=== PATIENT | male | born 1985 | race African-American/Black ===

== ENCOUNTER 2018-03-12 22:01 | Emergency (ER) | payer OTHER ==
[~2018-03-12] VITALS: Ht 175.3 cm; Wt 70.3 kg
[2018-03-12 22:15] VITALS: BP 126/72
[2018-03-12] MEDS ORDERED: AUGMENTIN 875-1 EAC1 ORAL (22:25)
[2018-03-12] MEDS ORDERED: PSEUDOEPHEDRINE60 MG PO (22:25)
[2018-03-12] MEDS ORDERED: IBUPROFEN600 MG ORAL (22:25)
--- NOTE | 2018-03-12 22:26 | Emergency Room Report ---
History of Present Illness General Chief Complaint: Flu Like Symptoms Source: Patient Present Illness [facility] This is a 32-year-old male with no past medical history. He presents with chief complaint of cough and congestion for last 3 weeks. Symptoms any worse. No nausea no vomiting. Now with headache and subjective fever. Daughter was sick with the same. Cough is nonproductive in nature. Worse with lying flat. Allergies: Coded Allergies: No Known Allergies (Unverified , 03/12/18) Patient History Past Medical History: none, see triage record, old chart reviewed Past Surgical History: none Pertinent Family History: none Social History: Denies: smoking Immunizations: other Reviewed Nursing Documentation: PMH: Agreed; PSxH: Agreed Nursing Documentation-PMH Past Medical History: No Stated History Review of Systems Constitutional: Reports: fever Eye: Denies: eye pain, blurred vision ENT: Reports: nose congestion; Denies: ear pain, throat swelling Respiratory: Reports: cough; Denies: shortness of breath Cardiovascular: Denies: chest pain, palpitations Gastrointestinal: Denies: abdominal pain, diarrhea, nausea, vomiting Musculoskeletal: Denies: back pain, joint pain Skin: Denies: rash Neurological: Denies: headache, numbness Endocrine: Denies: increased thirst, increased urine Hematologic/Lymphatic: Denies: easy bruising All Other Systems: negative except mentioned in HPI Physical Exam Vital Signs Date Time Temp Pulse Resp B/P (MAP) Pulse Ox O2 Delivery O2 Flow Rate FiO2 03/12/18 22:09 98.2 85 16 126/72 97 Room Air 03/12/18 22:15 99 vitals normal Sp02 EP Interpretation: reviewed, normal General Appearance: well appearing, no apparent distress, alert Head: normocephalic, atraumatic Eyes: bilateral eye PERRL, bilateral eye EOMI ENT: hearing grossly normal, normal pharynx, other - Right TM is erythematous Neck: full range of motion, supple, no meningismus Respiratory: chest non-tender, lungs clear, normal breath sounds Cardiovascular #1: regular rate, rhythm, no murmur Gastrointestinal: normal bowel sounds, non tender, no mass, no organomegaly, no bruit, non-distended Musculoskeletal: back normal, gait/station normal, normal range of motion Psychiatric: mood/affect normal Skin: warm/dry Medical Decision Making Diagnostic Impression: Primary Impression: URI (upper respiratory infection) Qualified Codes: J06.9 - Acute upper respiratory infection, unspecified Additional Impression: Otitis media, right Qualified Codes: H66.91 - Otitis media, unspecified, right ear ER Course Patient presents with a viral process or infection with otitis media. No evidence of meningitis, sepsis, pneumonia or other serious bacterial infection. We'll discharge home. Last Vital Signs Date Time Temp Pulse Resp B/P (MAP) Pulse Ox O2 Delivery O2 Flow Rate FiO2 03/12/18 22:15 85 16 Room Air 99 03/12/18 22:15 98.2 126/72 97 Status: unchanged Disposition: HOME, SELF-CARE Condition: Stable Scripts Amoxicillin/Potassium Clav 875-125* (AUGMENTIN 875-125 TABLET*) 1 Each Tablet 1 TAB ORAL TWICE A DAY, #14 TAB Prov: Darren Mccray MD 03/12/18 Pseudoephedrine Hcl* (SUDAFED*) 60 Mg Tablet 60 MG PO Q6H, #20 TAB Prov: Darren Mccray MD 03/12/18 Ibuprofen* (MOTRIN*) 600 Mg Tablet 600 MG ORAL THREE TIMES A DAY, #30 TAB 0 Refills Prov: Darren Mccray MD 03/12/18 Additional Instructions: Increase fluids. Follow-up with your doctor in 7 days. Return if worse. Darren Mccray MD Mar 12, 2018 22:26
[2018-03-12 22:35] VITALS: BP 126/72
== END 2018-03-12 22:35 | disposition home or self-care (01) ==
LOC: EMR 22:15
DX: J06.9 Acute upper respiratory infection, unspecified (principal); H66.91 Otitis media, unspecified, right ear; Z87.891 Personal history of nicotine dependence
CPT/HCPCS: 99283

== ENCOUNTER 2018-04-13 20:01 | Emergency (ER) | payer OTHER ==
[~2018-04-13] VITALS: Ht 175.3 cm; Wt 70.3 kg
[~2018-04-13 20:01] MED LIST: AUGMENTIN 875-1 EAC1 ORAL; IBUPROFEN600 MG ORAL; PSEUDOEPHEDRINE60 MG PO
[2018-04-13 20:10] VITALS: BP 130/76
[2018-04-13] MEDS ORDERED: Methocarbamol 500mg tab ORAL ONE (21:00)
[2018-04-13] MEDS ORDERED: Ketorolac 60mg Inj IM ONE (21:00)
[2018-04-13] MEDS ORDERED: oxyCODONE HCL/Acetaminophen 5/325mg ORAL ONE (21:00)
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
[2018-04-13] MEDS ORDERED: ROBAXIN500 MG PO (21:11)
[2018-04-13] MEDS ORDERED: IBUPROFEN600 MG ORAL (21:11)
[2018-04-13] MEDS ORDERED: TRAMADOL HCL50 MG ORAL (21:11)
[2018-04-13 21:20] VITALS: BP 128/96
== END 2018-04-13 21:20 | disposition home or self-care (01) ==
LOC: EMR 20:55
DX: S39.012A Strain of muscle, fascia and tendon of lower back, initial encounter (principal); M62.838 Other muscle spasm; X58.XXXA Exposure to other specified factors, initial encounter; Y92.9 Unspecified place or not applicable
CPT/HCPCS: 96372; 99283

== ENCOUNTER 2018-07-26 21:07 | Emergency (ER) | payer SELFPAY ==
[~2018-07-26] VITALS: Ht 177.8 cm; Wt 72.1 kg
[~2018-07-26 21:07] MED LIST changes: +ROBAXIN500 MG PO; +TRAMADOL HCL50 MG ORAL
[2018-07-26] MEDS ORDERED: NKM (21:16)
[2018-07-26 21:21] VITALS: BP 126/68
[2018-07-26 22:04] VITALS: BP 124/72
[2018-07-26] MEDS ORDERED: IBUPROFEN600 MG ORAL (22:06)
--- NOTE | 2018-07-26 22:07 | Emergency Room Report ---
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 In here in March for back pain from work. There is no trauma. He said the pain never got really better. But again exacerbation last couple weeks. Worse with heavy lifting. Worse with twisting. Never had any Worker's Comp. follow-up. No fever chills but no nausea no vomiting. No incontinence of bowel or urine. Allergies: Coded Allergies: No Known Allergies (Unverified , 04/13/18) Patient History Past Medical History: see triage record, old chart reviewed Past Surgical History: none Pertinent Family History: none Social History: Denies: smoking Immunizations: other Reviewed Nursing Documentation: PMH: Agreed; PSxH: Agreed Nursing Documentation-PM Past Medical History: No Stated History Review of Systems Eye: Denies: eye pain, blurred vision ENT: Denies: ear pain, nose congestion, throat swelling Respiratory: Denies: cough, shortness of breath Cardiovascular: Denies: chest pain, palpitations Gastrointestinal: Denies: abdominal pain, diarrhea, nausea, vomiting Musculoskeletal: Reports: back pain; Denies: joint pain Skin: Denies: rash Neurological: Denies: headache, numbness Endocrine: Denies: increased thirst, increased urine Hematologic/Lymphatic: Denies: easy bruising All Other Systems: negative except mentioned in HPI Physical Exam Vital Signs Date Time Temp Pulse Resp B/P (MAP) Pulse Ox O2 Delivery O2 Flow Rate FiO2 07/26/18 21:11 98.8 84 12 123/60 95 Room Air vitals normal Sp02 EP Interpretation: reviewed, normal General Appearance: well appearing, no apparent distress, alert Head: normocephalic, atraumatic Eyes: bilateral eye PERRL, bilateral eye EOMI ENT: hearing grossly normal, normal pharynx Neck: full range of motion, supple, no meningismus Respiratory: chest non-tender, lungs clear, normal breath sounds Cardiovascular #1: regular rate, rhythm, no murmur Gastrointestinal: normal bowel sounds, non tender, no mass, no organomegaly, no bruit, non-distended Musculoskeletal: back normal - Tenderness to the left lower lumbar paraspinous muscle., gait/station normal, normal range of motion Psychiatric: mood/affect normal Skin: warm/dry Medical Decision Making Diagnostic Impression: Primary Impression: Low back strain Qualified Codes: S39.012A - Strain of muscle, fascia and tendon of lower back , initial encounter ER Course Patient with back pain. No evidence of any cauda equina syndrome, spinal or abscess or neoplastic process. No trauma to indicate fracture. Last Vital Signs Date Time Temp Pulse Resp B/P (MAP) Pulse Ox O2 Delivery O2 Flow Rate FiO2 07/26/18 21:21 98.6 82 16 126/68 98 Room Air Status: improved Disposition: HOME, SELF-CARE Condition: Stable Scripts Ibuprofen* (MOTRIN*) 600 Mg Tablet 600 MG ORAL THREE TIMES A DAY, #30 TAB 0 Refills Prov: Darren Mccray MD 07/26/18 Patient Instructions: Back Injury Prevention Additional Instructions: Follow-up with your workmen's comp doctor in 2-3 days. Return if worse. Darren Mccray MD Jul 26, 2018 22:07
== END 2018-07-26 22:10 | disposition home or self-care (01) ==
LOC: EMR 21:51
DX: S39.012A Strain of muscle, fascia and tendon of lower back, initial encounter (principal); X58.XXXA Exposure to other specified factors, initial encounter; Y92.9 Unspecified place or not applicable
CPT/HCPCS: 99282

== ENCOUNTER 2018-11-11 00:34 | Emergency (ER) | payer OTHER ==
[~2018-11-11] VITALS: Ht 175.3 cm; Wt 72.6 kg
[~2018-11-11 00:34] MED LIST changes: +NKM
[2018-11-11 00:46] VITALS: BP 128/69
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
--- NOTE | 2018-11-11 00:58 | NUR ---
ED Nurse Note: called [employer] station, spoke with corrugator operator [id number], per corrugator operator statement, if the patient doesn't want to file police report the PD won't come out, pt stated that he doesn't want to file police report at this time.
[2018-11-11] MEDS ORDERED: Lidocaine 1% Plain 30 ml INJ ONE ×2 (01:11→01:15)
[2018-11-11] MEDS ORDERED: Acetaminophen 500mg (ES) tab ORAL ONE ×2 (01:12→01:15)
--- NOTE | 2018-11-11 01:14 | NUR ---
ED Nurse Note: PT SENT TO CT
[2018-11-11] MEDS ORDERED: Bacitracin Oint UD TOPIC ONE ×2 (01:43→02:00)
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
--- NOTE | 2018-11-11 02:08 | NUR ---
ED Nurse Note: PT CLEARED TO BE D/C PER ERMD, PT DISCHARGE AND AFTERCARE INSTRUCTION PROVIDED W/ PRESCRIPTION, PT EDUCATION DONE VIA DISCUSSION AND HANDOUT, PT ADIVSED TO FOLLOW UP WITH PCP OR RETURN TO ED, STAPLE REMOVAL IN 10DAYS, PT VERBALIZED UNDERSTANDING AND AGREES WITH PLAN, ACCOMPANIED BY FAMILY AND LEFT W/ ALL BELONGINGS.
[2018-11-11 02:09] VITALS: BP 128/69
--- NOTE | 2018-11-11 12:44 | Diagnostic Imaging Report ---
Indication: Headache Technique: Contiguous 5 mm thick transaxial imaging of the head obtained in a Siemens Sensation [address] scanner. Soft tissue and bone windows generated. Automatic Exposure Control was utilized. Total Dose length Product (DLP): [address] Dose Index Volume (CTDIvol): 80.38 mGy Comparison: none Findings: Normal [facility] has communicated the preliminary results to the Emergency Department. Their findings are largely concordant with this report. The CT scanner at [facility] is accredited by the [employer] and the scans are performed using dose optimization techniques as appropriate to a performed exam including Automatic Exposure control.
== END 2018-11-11 02:09 | disposition home or self-care (01) ==
LOC: EMR 01:15
DX: S01.01XA Laceration without foreign body of scalp, initial encounter (principal); Y04.2XXA Assault by strike against or bumped into by another person, initial encounter; Y92.89 Other specified places as the place of occurrence of the external cause
CPT/HCPCS: 12002; 70450; 99284; J2001; Z7502

== ENCOUNTER 2018-11-13 00:37 | Emergency (ER) | payer OTHER ==
[~2018-11-13] VITALS: Ht 177.8 cm; Wt 72.6 kg
[2018-11-13 00:49] VITALS: BP 100/68
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
[2018-11-13] MEDS ORDERED: HYDROmorphone 1mg/ml Carpuject IM ONE (01:00)
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
[2018-11-13] MEDS ORDERED: HYDROCODON-ACE1 EA15 ORAL (01:15)
[2018-11-13] MEDS ORDERED: ROBAXIN500 MG PO (01:15)
[2018-11-13 01:20] VITALS: BP 100/68
--- NOTE | 2018-11-13 01:20 | NUR ---
ER Nurse Note: Pt seen, treated, medically cleared for discharge by ERMD. Discharge instuctions and prescriptions given with repeat verbalization by pt. Emphasized to follow up with primay care provider; take whole course of medication. Explained each medication. All orders completed per ERMD orders. Pt a&ox4, VSS, no signs of distress. ID band removed. Sling applied to pt RT arm. All questions answered per pt's questions. Pt left with all belongings, left with own transportation with significant other.
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
[2018-11-14] MEDS ORDERED: IBUPROFEN600 MG ORAL (09:54)
[2018-11-14] MEDS ORDERED: CYCLOBENZAPRINE10 MG ORAL (09:54)
== END 2018-11-13 01:20 | disposition home or self-care (01) ==
LOC: EMR 00:55
DX: S43.401A Unspecified sprain of right shoulder joint, initial encounter (principal); Y09 Assault by unspecified means
CPT/HCPCS: 29105; 73030; 96372; 99283; J1170

== ENCOUNTER 2018-11-14 07:47 | Emergency (ER) | payer OTHER ==
[~2018-11-14] VITALS: Ht 177.8 cm; Wt 72.6 kg
[~2018-11-14 07:47] MED LIST changes: +HYDROCODON-ACE1 EA15 ORAL
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
[2018-11-14] MEDS ORDERED: Ketorolac 60mg Inj IM ONE (08:30)
--- NOTE | 2018-11-14 08:35 | NUR ---
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 pt states continued pain and not improving despite meds given on last visit. pt a/ox4 pt to have pain med when returns.
--- NOTE | 2018-11-14 09:41 | Diagnostic Imaging Report ---
EXAM: CT Cervical Spine Without Intravenous Contrast CLINICAL HISTORY: PAIN TECHNIQUE: Axial computed tomography images of the cervical spine without intravenous contrast. CTDI is 16.35 mGy and DLP is 390.87 mGy-cm. One or more of the following dose reduction techniques were used: automated exposure control, adjustment of the mA and/or kV according to patient size, use of iterative reconstruction technique. Coronal and sagittal reformatted images were created and reviewed. COMPARISON: No relevant prior studies available. FINDINGS: Vertebrae: Unremarkable. No visible displaced fracture. Cervical body heights are preserved. The atlantodens interval appears unremarkable. Discs/spinal canal/neural foramina: Mild degenerative disc space loss and facet osteophytes, most prominent at C5-6. No significant osseous stenosis of the central canal or neural foramina. Soft tissues: Unremarkable. IMPRESSION: Mild degenerative changes, most prominent at C5-6.
--- NOTE | 2018-11-14 09:48 | Diagnostic Imaging Report ---
EXAM: CT Head Without Intravenous Contrast CLINICAL HISTORY: PAIN TECHNIQUE: Axial computed tomography images of the head/brain without intravenous contrast. CTDI is 70.38 mGy and DLP is 1379.38 mGy-cm. One or more of the following dose reduction techniques were used: automated exposure control, adjustment of the mA and/or kV according to patient size, use of iterative reconstruction technique. Coronal reformatted images were created and reviewed. COMPARISON: CT head dated 11/11/18 FINDINGS: Brain: Unremarkable. No evidence of acute intracranial hemorrhage. No significant white matter disease. No edema. No mass effect or midline shift. Ventricles: Unremarkable. No ventriculomegaly. Bones/joints: Unremarkable. No depressed skull fracture. Soft tissues: Radiodense crystal in the posterior parietal scalp just left of midline. Sinuses: Unremarkable as visualized. No acute sinusitis. Mastoid air cells: Unremarkable as visualized. No mastoid effusion. IMPRESSION: No acute intracranial findings.
[2018-11-14] MEDS ORDERED: CYCLOBENZAPRINE10 MG ORAL (09:54)
[2018-11-14] MEDS ORDERED: IBUPROFEN600 MG ORAL (09:54)
--- NOTE | 2018-11-14 10:25 | NUR ---
ER DISCHARGE NOTE: Patient is cleared to be discharged per ERMD, pt is aox4, on room air, with stable vital signs. pt was given dc and prescription instructions, pt was able to verbalize understanding, pt id band removed without complications. pt is able to ambulate with steady gait. pt took all belongings.
[2018-11-14 10:26] VITALS: BP 137/98
== END 2018-11-14 10:25 | disposition home or self-care (01) ==
LOC: EMR 08:27
DX: M13.88 Other specified arthritis, other site (principal); S46.901A Unspecified injury of unspecified muscle, fascia and tendon at shoulder and upper arm level, right arm, initial encounter; X58.XXXA Exposure to other specified factors, initial encounter; Y92.9 Unspecified place or not applicable
CPT/HCPCS: 70450; 72125; 96372; 99283

== ENCOUNTER 2018-11-26 15:08 | Emergency (ER) | payer OTHER ==
[~2018-11-26] VITALS: Ht 175.3 cm; Wt 72.6 kg
[~2018-11-26 15:08] MED LIST changes: +CYCLOBENZAPRINE10 MG ORAL
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
[2018-11-26 15:17] VITALS: BP 144/74
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
[2018-11-26] MEDS ORDERED: ROBAXIN-750750 MG PO (16:13)
[2018-11-26 16:45] VITALS: BP 138/76
== END 2018-11-26 16:45 | disposition home or self-care (01) ==
LOC: EMR 16:00
DX: M25.511 Pain in right shoulder (principal)
CPT/HCPCS: 99281

== ENCOUNTER 2020-02-08 23:25 | Emergency (ER) | payer OTHER ==
[~2020-02-08] VITALS: Ht 175.3 cm; Wt 68.0 kg
[~2020-02-08 23:25] MED LIST changes: +ROBAXIN-750750 MG PO
[2020-02-09] MEDS ORDERED: IBUPROFEN600 M1 ORAL (00:30)
[2020-02-09] MEDS ORDERED: AMOXICILLIN500 MG ORAL (00:30)
--- NOTE | 2020-02-09 00:30 | Emergency Room Report ---
History of Present Illness General Chief Complaint: Earache Source: Patient Present Illness [facility] This a 34-year-old male with no past medical history. He presents with complaint of right ear pain. Onset for last couple days. His put some eardrops in it and actually made it worse. Pain is 8 out of 10. Throbbing in nature. Denies any cough congestion. No fever chills. Denies any other complaint. 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 CHIPPER: Yes - 2 days ago COVID-19 Screening: Negative COVID-19 COVID-19 Testing Source: [facility] Patient History Past Medical History: see triage record, old chart reviewed Past Surgical History: none Pertinent Family History: none Social History: Denies: smoking Immunizations: other Reviewed Nursing Documentation: PMH: Agreed; PSxH: Agreed Nursing Documentation-PMH Past Medical History: No Stated History Review of Systems Eye: Denies: eye pain, blurred vision ENT: Reports: ear pain; Denies: nose congestion, throat swelling Respiratory: Denies: cough, shortness of breath Cardiovascular: Denies: chest pain, palpitations Gastrointestinal: Denies: abdominal pain, diarrhea, nausea, vomiting Musculoskeletal: Denies: back pain, joint pain Skin: Denies: rash Neurological: Denies: headache, numbness Endocrine: Denies: increased thirst, increased urine Hematologic/Lymphatic: Denies: easy bruising All Other Systems: negative except mentioned in HPI Physical Exam Vital Signs Date Time Temp Pulse Resp B/P (MAP) Pulse Ox O2 Delivery O2 Flow Rate FiO2 02/08/20 23:29 98.2 74 18 119/81 (94) 94 Room Air Vitals normal Sp02 EP Interpretation: reviewed, normal General Appearance: well appearing, no apparent distress, alert Head: normocephalic, atraumatic Eyes: bilateral eye PERRL, bilateral eye EOMI ENT: hearing grossly normal, normal pharynx, other - Both ear canals impacted with wax. After disimpaction, right TM is erythematous and bulging. Neck: full range of motion, supple, no meningismus Respiratory: chest non-tender, lungs clear, normal breath sounds Cardiovascular #1: regular rate, rhythm, no murmur Gastrointestinal: normal bowel sounds, non tender, no mass, no organomegaly, no bruit, non-distended Musculoskeletal: back normal, normal range of motion, gait/station normal Psychiatric: mood/affect normal Procedures Additional Procedure Procedure Narrative Procedure: Cerumen disimpaction Indication: Cerumen impaction Description: I irrigated both ears with normal saline. Hard cerumen disimpacted. No trauma. Medical Decision Making Diagnostic Impression: Primary Impression: Right otitis media Qualified Codes: H66.91 - Otitis media, unspecified, right ear Additional Impression: Impacted cerumen of both ears ER Course Patient presents with right ear pain. He has an otitis media. No perforation. Will discharge home. Last Vital Signs Date Time Temp Pulse Resp B/P (MAP) Pulse Ox O2 Delivery O2 Flow Rate FiO2 02/08/20 23:29 98.2 74 18 119/81 (94) 94 Room Air Status: improved Disposition: HOME, SELF-CARE Condition: Stable Scripts Ibuprofen* (MOTRIN*) 600 Mg Tablet 600 MG ORAL Q6H PRN for For Pain, #30 TAB 0 Refills Prov: Darren Mccray MD 02/09/20 Amoxicillin* (AMOXIL*) 500 Mg Capsule 500 MG ORAL THREE TIMES A DAY, #21 CAP Prov: Darren Mccray MD 02/09/20 Referrals: [facility],REFERRING (PCP) Patient Instructions: Otitis Media, Adult Additional Instructions: Follow-up with In 7 days. Return if symptoms worsen. Darren Mccray MD Feb 09, 2020 00:30
[2020-02-09 00:33] VITALS: BP 122/78
== END 2020-02-09 00:33 | disposition home or self-care (01) ==
LOC: EMR 23:59
DX: H61.23 Impacted cerumen, bilateral (principal); H66.91 Otitis media, unspecified, right ear
CPT/HCPCS: 69209; Z7502; 99282